=== PATIENT | female | born 1955 | race Hispanic/Latino ===

== ENCOUNTER 2017-11-02 10:59 | Outpatient (CLI) | payer MEDICARE ==
--- NOTE | 2017-11-03 08:44 | Mammography Report ---
BILATERAL DIGITAL SCREENING MAMMOGRAM with CAD: 11/02/17 10:59:00 CLINICAL: Routine screening. COMPARISON:05/24/16 FINDINGS: Compromised positioning due to wheelchair status. The breasts are heterogeneously dense, which may obscure small masses. No mass, architectural distortion or suspicious calcifications. IMPRESSION: Negative mammogram. However, mammography is not an ideal screening modality in this patient with limited ability to cooperate for the exam. Consider bilateral ultrasound screening as an alternative. BI-RADS CATEGORY: 1 - - Negative COMMENT: Patient follow-up letters are generated by our [employer] application.
== END 2017-11-02 11:00 | disposition home or self-care (01) ==
LOC: MAMMO 10:59
PROVIDERS: ATTEND Internal Medicine
DX: Z12.31 Encounter for screening mammogram for malignant neoplasm of breast (principal)
CPT/HCPCS: 77067; G0202